=== PATIENT | female | born 1945 | race Two or more races ===

== ENCOUNTER → 2019-12-11 | Outpatient (CLI) | payer MEDICARE | END | disposition home or self-care (01) | LOC: CFH 07:27 | PROVIDERS: ATTEND Nurse Practitioner Family | DX: R92.8 Other abnormal and inconclusive findings on diagnostic imaging of breast (principal); N64.4 Mastodynia; N95.9 Unspecified menopausal and perimenopausal disorder | CPT/HCPCS: 77066; 77080; G0279 ==